=== PATIENT | male | born 1950 | race Caucasian/White ===

== ENCOUNTER → 2016-08-10 | Outpatient (CLI) | payer MEDICARE, OTHER ==
--- NOTE | 2016-08-10 21:50 | EEG ---
DATE OF SERVICE: 08/10/2016 INDICATIONS FOR EXAMINATION: This patient is a 66-year-old male with history of seizures dating back to 2003. The patient now with increasing confusion and memory loss. AGE: 66Y EEG FINDINGS: A routine 21-channel, awake digital EEG recording was accomplished utilizing the 10-20 international system with bipolar and referential montages. The background activity in the most alert resting state consists of a low to medium amplitude, fairly well-developed and well-sustained 7-8 Hz activity over the posterior head regions. This posterior rhythm attenuates to eye opening. There is a small amount of low amplitude 18-20 Hz beta activity seen maximally over the anterior head regions. Muscle and movement artifact was observed on a few occasions during the tracing. Hyperventilation failed to add any additional information to the tracing. No further activation was noted. Photic stimulation at flash frequencies of 2-30 Hz produced a minimal occipital driving response. No epileptiform discharges were seen. IMPRESSION: This EEG is within normal limits for the patient's age. The EEG failed to reveal any focal, lateralized or epileptiform abnormalities. Clinical correlation is recommended.
== END | disposition home or self-care (01) ==
LOC: NEUROMAIN 09:06
PROVIDERS: ATTEND Psychiatry & Neurology Neurology
DX: R56.9 Unspecified convulsions (principal); R41.3 Other amnesia
CPT/HCPCS: 95816

== ENCOUNTER 2016-12-15 13:59 | Inpatient (IN) | payer MEDICARE, OTHER ==
[2016-12-15] MEDS ORDERED: SODIUM CHLORIDE 0.9% 1,000 ML IV STA (14:51)
--- NOTE | 2016-12-15 14:59 | ED ---
General Adult HPI - General Chief complaint: Recheck/Abnormal Lab/Rx Stated complaint: Dr Sent/ Swollen leg Time Seen by Provider: 12/15/16 14:40 Source: patient, family, RN notes reviewed Mode of arrival: ambulatory Limitations: altered mental status - History of Present Illness Initial comments: Chief complaint and history of present illness is a 66-year-old male who is here with his sister. The patient has special needs and lives in a facility where he is cared for. The patient was seen by the family physician today because of increased peripheral edema even to his left arm. Some shortness of breath. What appears to be some bloating of his abdomen. No disability 10 pound weight gain recently. The patient does not have any complaints of pain other than chronic low back pain. - Related Data Home Medications Medication Instructions Recorded Confirmed Divalproex Sodium [Depakote] 1,000 mg PO BID 12/15/16 12/15/16 Divalproex Sodium [Depakote] 500 mg PO W/LUNCH 12/15/16 12/15/16 Lisinopril [Zestril] 1 tab PO DAILY 12/15/16 12/15/16 Allergies Allergy/AdvReac Type Severity Reaction Status Date / Time No Known Allergies Allergy Verified 12/15/16 14:40 Review of Systems ROS Statement: Those systems with pertinent positive or pertinent negative responses have been documented in the HPI. Review of systems. He is denying any visual acuity changes no headache no chest pain occasional shortness of breath with exertion. Though his abdomen looks distended sister says it looks somewhat normal. He does have pitting edema bilateral extremities from his knees to his feet. No significant change in his alertness or cognitive abilities. As noted above he does has special needs and is cared for in a facility. No falls or injuries. All systems are reviewed. Past medical processing significant for seizure disorder for which he takes Depakote. Also hypertension which he takes lisinopril. Patient surgeries on the nasal polyps. He had an adverse reaction to the anesthetic used at that time. Family history mother had colon cancer a brother had lung cancer father had diabetes. ALLERGIES as noted above to an anesthetic of unknown type. Nonsmoker nondrinker. ROS Other: All systems not noted in ROS Statement are negative. Past Medical History Past Medical History: Seizure Disorder Additional Past Medical History / Comment(s): special needs History of Any Multi-Drug Resistant Organisms: None Reported Additional Past Surgical History / Comment(s): nasal polps Past Psychological History: No Psychological Hx Reported Smoking Status: Never smoker Past Alcohol Use History: None Reported Past Drug Use History: None Reported General Exam - General Exam Comments Initial Comments: General: The patient is awake and alert, in no distress, and does not appear acutely ill. Here with her sister because of a 10 pound weight gain recently. Some dyspnea with exertion. And peripheral edema to his extremities including left arm but not the right arm. Vital signs show temperature 96.9 pulse 75 respiratory rate 20 pulse ox 95% room air blood pressure 163/95 Eye: Pupils are equal, round and reactive to light, extra-ocular movements are intact ; there is normal conjunctiva bilaterally. No signs of icterus. Ears, nose, mouth and throat: There are moist mucous membranes and no oral lesions. Neck: The neck is supple, there is no tenderness , no anterior cervical lymphadenopathy. Cardiovascular: There is a regular rate and rhythm. No murmur, rub or gallop is appreciated. Respiratory: Lungs are clear to auscultation, respirations are non-labored, breath sounds are equal. No wheezes, stridor, rales, or rhonchi. Dyspnea develops with mild activity. Gastrointestinal: Soft, appears distended but not typically more than normal per sister, non- tender abdomen without masses or organomegaly noted. There is no rebound or guarding present. No CVA tenderness. Bowel sounds are unremarkable. Back: There is no tenderness to palpation in the midline. There is no obvious deformity. No rashes noted. Low back pain, chronic has history of osteoporosis and takes calcium twice daily. Musculoskeletal: Pitting edema both lower extremities. Mildly more edematous left arm than right. Pulses to lower extremities equal bilaterally. Neurological: CN II-XII intact, There are no obvious motor or sensory deficits. Coordination appears grossly intact. Speech is normal. Sister does not notice any neurological changes or differences. Skin: Skin is warm and dry and no rashes or lesions are noted. Psychiatric: Cooperative, history of special needs but no psychological illnesses. Limitations: altered mental status Course Vital Signs 12/15/16 12/15/16 12/15/16 14:04 17:19 18:40 Temperature 96.9 F L Pulse Rate 75 74 73 Respiratory 20 18 18 Rate Blood Pressure 163/95 168/88 194/97 O2 Sat by Pulse 95 96 97 Oximetry EKG Findings - EKG Comments: EKG Findings:: EKG was done and reviewed at 1546 showing normal sinus rhythm no acute ST elevation no ectopy no ischemic changes. Rate 72. It was 162 QRS 82 QT 386 QTc 422. Medical Decision Making - Medical Decision Making Medical decision making; patient's labs show white count of 4 hemoglobin 13 hematocrit 38. Platelets 90. D-dimer 0.26. Patient's CK is 66 troponin less than 0.012. Glucose 142. Patient's INR is 1.2, potassium 4.3 BUN 16 creatinine 0.9 and GFR greater than 60. Urine clean no signs of infection or blood. Medical decision making the patient had chest x-ray done and reviewed by radiologist his impression is there is no suspicious no focal airspace opacity, pleural effusion, or pneumothorax seen. There is persistent left basilar scarring and/or atelectasis. Cardiac silhouette size is stable and upper limits of normal. The osseous structures are somewhat demineralized. Impression no worrisome acute cardiopulmonary process. As read by Dr. daneil x- ray of the abdomen was done and reviewed by radiologist his impression is scattered gas is seen in nondistended small bowel loops. Gas and fecal material is seen in nondistended colon. There is no visceromegaly, pneumoperitoneum, or abnormal calcification associated. The lung bases are clear and the osseous structures are intact. Impression overall nonobstructive bowel gas pattern as read by Dr. daniel. CT the abdomen was done with IV and oral contrast and reviewed by radiologist significant findings are contracted gallbladder is noted likely related to recent drinking contrast material. Tiny depending gallstones present on coronal image 44 confirmed the axial image 28. No surrounding inflammatory changes seen liver is somewhat small in size. Pancreas Dony adrenals and kidneys no significant abnormality seen. The bowel; a normal-appearing appendix is seen from the cecum. Oral contrast reaches level of the cecum. There is contrast filled distended stomach. There is no suspicious small or large bowel dilatation. There is somewhat redundant sigmoid colon. Prostate and seminal vesicles no gross abnormality seen. Lymph nodes no greater than 1 cm abdominal or pelvic lymph nodes are appreciated. Osseous structures prominent small nodes. T11 endplate. Impression no significant acute finding is seen Over the patient's clinical symptoms. No ascites is present. As read by Dr. daniel Be blood pressure at this time is to a 208 / 112. The patient received hydralazine 20 mg IV push. Patient will be admitted for observation. - Lab Data Result diagrams: 12/15/16 15:30 12/15/16 15:30 Lab Results 12/15/16 12/15/16 12/15/16 Range/Units 15:30 15:30 15:30 WBC 4.1 (3.8-10.6) k/uL RBC 4.02 L (4.30-5.90) m/uL Hgb 13.4 (13.0-17.5) gm/dL Hct 38.2 L (39.0-53.0) % MCV 95.0 (80.0-100.0) fL MCH 33.3 (25.0-35.0) pg MCHC 35.1 (31.0-37.0) g/dL RDW 13.9 (11.5-15.5) % Plt Count 90 L (150-450) k/uL Neutrophils % 56 % Lymphocytes % 28 % Monocytes % 9 % Eosinophils % 3 % Basophils % 0 % Neutrophils # 2.3 (1.3-7.7) k/uL Lymphocytes # 1.2 (1.0-4.8) k/uL Monocytes # 0.4 (0-1.0) k/uL Eosinophils # 0.1 (0-0.7) k/uL Basophils # 0.0 (0-0.2) k/uL PT (9.0-12.0) sec INR (<1.1) APTT (22.0-30.0) sec D-Dimer (<0.60) mg/L FEU Sodium 141 (137-145) mmol/L Potassium 4.3 (3.5-5.1) mmol/L Chloride 105 (98-107) mmol/L Carbon Dioxide 28 (22-30) mmol/L Anion Gap 8 mmol/L BUN 16 (9-20) mg/dL Creatinine 0.90 (0.66-1.25) mg/dL Est GFR (MDRD) Af Amer >60 (>60 ml/min/1.73 sqM) Est GFR (MDRD) Non-Af >60 (>60 ml/min/1.73 sqM) Glucose 142 H (74-99) mg/dL Calcium 8.6 (8.4-10.2) mg/dL Total Bilirubin 0.4 (0.2-1.3) mg/dL AST 85 H (17-59) U/L ALT 55 (21-72) U/L Alkaline Phosphatase 46 (38-126) U/L Total Creatine Kinase 66 (55-170) U/L CK-MB (CK-2) 0.9 (0.0-2.4) ng/mL CK-MB (CK-2) Rel Index 1.4 Troponin I <0.012 (0.000-0.034) ng/mL NT-Pro-B Natriuret Pep pg/mL Total Protein 6.5 (6.3-8.2) g/dL Albumin 3.5 (3.5-5.0) g/dL TSH (0.465-4.680) mIU/L Free T4 (0.78-2.19) ng/dL Urine Color Urine Appearance (Clear) Urine pH (5.0-8.0) Ur Specific Whitfield (1.001-1.035) Urine Protein (Negative) Urine Glucose (UA) (Negative) Urine Ketones (Negative) Urine Blood (Negative) Urine Nitrite (Negative) Urine Bilirubin (Negative) Urine Urobilinogen (<2.0) mg/dL Ur Leukocyte Esterase (Negative) Valproic Acid ug/mL 12/15/16 12/15/16 12/15/16 Range/Units 15:30 15:30 15:30 WBC (3.8-10.6) k/uL RBC (4.30-5.90) m/uL Hgb (13.0-17.5) gm/dL Hct (39.0-53.0) % MCV (80.0-100.0) fL MCH (25.0-35.0) pg MCHC (31.0-37.0) g/dL RDW (11.5-15.5) % Plt Count (150-450) k/uL Neutrophils % % Lymphocytes % % Monocytes % % Eosinophils % % Basophils % % Neutrophils # (1.3-7.7) k/uL Lymphocytes # (1.0-4.8) k/uL Monocytes # (0-1.0) k/uL Eosinophils # (0-0.7) k/uL Basophils # (0-0.2) k/uL PT 11.8 (9.0-12.0) sec INR 1.2 (<1.1) APTT 24.4 (22.0-30.0) sec D-Dimer 0.26 (<0.60) mg/L FEU Sodium (137-145) mmol/L Potassium (3.5-5.1) mmol/L Chloride (98-107) mmol/L Carbon Dioxide (22-30) mmol/L Anion Gap mmol/L BUN (9-20) mg/dL Creatinine (0.66-1.25) mg/dL Est GFR (MDRD) Af Amer (>60 ml/min/1.73 sqM) Est GFR (MDRD) Non-Af (>60 ml/min/1.73 sqM) Glucose (74-99) mg/dL Calcium (8.4-10.2) mg/dL Total Bilirubin (0.2-1.3) mg/dL AST (17-59) U/L ALT (21-72) U/L Alkaline Phosphatase (38-126) U/L Total Creatine Kinase (55-170) U/L CK-MB (CK-2) (0.0-2.4) ng/mL CK-MB (CK-2) Rel Index Troponin I (0.000-0.034) ng/mL NT-Pro-B Natriuret Pep 490 pg/mL Total Protein (6.3-8.2) g/dL Albumin (3.5-5.0) g/dL TSH (0.465-4.680) mIU/L Free T4 (0.78-2.19) ng/dL Urine Color Yellow Urine Appearance Clear (Clear) Urine pH 7.0 (5.0-8.0) Ur Specific Whitfield 1.016 (1.001-1.035) Urine Protein Negative (Negative) Urine Glucose (UA) Trace H (Negative) Urine Ketones Trace H (Negative) Urine Blood Negative (Negative) Urine Nitrite Negative (Negative) Urine Bilirubin Negative (Negative) Urine Urobilinogen <2.0 (<2.0) mg/dL Ur Leukocyte Esterase Negative (Negative) Valproic Acid ug/mL 12/15/16 12/15/16 Range/Units 15:30 15:30 WBC (3.8-10.6) k/uL RBC (4.30-5.90) m/uL Hgb (13.0-17.5) gm/dL Hct (39.0-53.0) % MCV (80.0-100.0) fL MCH (25.0-35.0) pg MCHC (31.0-37.0) g/dL RDW (11.5-15.5) % Plt Count (150-450) k/uL Neutrophils % % Lymphocytes % % Monocytes % % Eosinophils % % Basophils % % Neutrophils # (1.3-7.7) k/uL Lymphocytes # (1.0-4.8) k/uL Monocytes # (0-1.0) k/uL Eosinophils # (0-0.7) k/uL Basophils # (0-0.2) k/uL PT (9.0-12.0) sec INR (<1.1) APTT (22.0-30.0) sec D-Dimer (<0.60) mg/L FEU Sodium (137-145) mmol/L Potassium (3.5-5.1) mmol/L Chloride (98-107) mmol/L Carbon Dioxide (22-30) mmol/L Anion Gap mmol/L BUN (9-20) mg/dL Creatinine (0.66-1.25) mg/dL Est GFR (MDRD) Af Amer (>60 ml/min/1.73 sqM) Est GFR (MDRD) Non-Af (>60 ml/min/1.73 sqM) Glucose (74-99) mg/dL Calcium (8.4-10.2) mg/dL Total Bilirubin (0.2-1.3) mg/dL AST (17-59) U/L ALT (21-72) U/L Alkaline Phosphatase (38-126) U/L Total Creatine Kinase (55-170) U/L CK-MB (CK-2) (0.0-2.4) ng/mL CK-MB (CK-2) Rel Index Troponin I (0.000-0.034) ng/mL NT-Pro-B Natriuret Pep pg/mL Total Protein (6.3-8.2) g/dL Albumin (3.5-5.0) g/dL TSH 6.020 H (0.465-4.680) mIU/L Free T4 0.80 (0.78-2.19) ng/dL Urine Color Urine Appearance (Clear) Urine pH (5.0-8.0) Ur Specific Whitfield (1.001-1.035) Urine Protein (Negative) Urine Glucose (UA) (Negative) Urine Ketones (Negative) Urine Blood (Negative) Urine Nitrite (Negative) Urine Bilirubin (Negative) Urine Urobilinogen (<2.0) mg/dL Ur Leukocyte Esterase (Negative) Valproic Acid 117.7 H* ug/mL Disposition Clinical Impression: Edema extremities, Accelerated hypertension Disposition: ADMITTED IP TO THIS HOSP Condition: Serious Referrals: Celestino Dia DO [Primary Care Provider] - 1-2 days
--- NOTE | 2016-12-15 16:14 | XR ---
EXAMINATION TYPE: XR chest 2V DATE OF EXAM: 12/15/2016 COMPARISON: Chest x-ray October 26, 2012. HISTORY: Difficulty breathing with swelling in both legs. TECHNIQUE: Frontal and lateral views of the chest are obtained. FINDINGS: There is no suspicious new focal air space opacity, pleural effusion, or pneumothorax seen . There is persistent left basilar scarring and/or atelectasis. The cardiac silhouette size is stabl e and upper limits of normal. The osseous structures are somewhat demineralized. IMPRESSION: No worrisome acute cardiopulmonary process.
--- NOTE | 2016-12-15 16:15 | XR ---
EXAMINATION TYPE: XR abdomen 2V DATE OF EXAM: 12/15/2016 CLINICAL HISTORY: Difficulty breathing with swelling in both legs. TECHNIQUE: Supine and upright views of the abdomen are obtained. COMPARISON: None. FINDINGS: Scattered gas is seen in non-distended small bowel loops. Gas and fecal material is seen in non-distended colon. There is no visceromegaly, pneumoperitoneum, or abnormal calcification appr eciated. The lung bases are clear and the osseous structures are intact. IMPRESSION: Overall nonobstructive bowel gas pattern.
[2016-12-15 16:16] LABS: Appearance,Urine Clear (Clear); Basophils % (A) 0 %; Bilirubin,Urine Negative (Negative); CH 32.4; CHCM 34.3; Eosinophils # (A) 0.1 k/uL (0-0.7); Eosinophils % (A) 3 %; Glucose,Urine (UA) Trace (Negative); HCT 38.2 % (39.0-53.0); HDW 2.69; HGB 13.4 gm/dL (13.0-17.5); Ketones,Urine Trace (Negative); Leukocyte Esterase,Urine Negative (Negative); Luc # (Auto) 0.12; Luc % (Auto) 3; Lymphocytes # (A) 1.2 k/uL (1.0-4.8); Lymphocytes % (A) 28 %; MCH 33.3 pg (25.0-35.0); MCHC 35.1 g/dL (31.0-37.0); Monocytes # (A) 0.4 k/uL (0-1.0); Monocytes % (A) 9 %; Neutrophils # (A) 2.3 k/uL (1.3-7.7); Neutrophils % (A) 56 %; Nitrite,Urine Negative (Negative); Protein,Urine Negative (Negative); RBC 4.02 m/uL (4.30-5.90); RDW 13.9 % (11.5-15.5); Specific Gravity,Urine 1.016 (1.001-1.035); UA Billing (MACRO vs. MICRO) CHEM; Urobilinogen,Urine <2.0 mg/dL (<2.0); WBC 4.1 k/uL (3.8-10.6); WBC (Perox) 4.34
[2016-12-15 16:34] LABS: INR 1.2 (<1.1); Partial Thromboplastin Time 24.4 sec (22.0-30.0); Prothrombin Time 11.8 sec (9.0-12.0)
[2016-12-15 16:35] LABS: Creatine Kinase 66 U/L (55-170)
[2016-12-15 16:39] LABS: ALT 55 U/L (21-72); AST 85 U/L (17-59); Alkaline Phosphatase 46 U/L (38-126); Anion Gap 8 mmol/L; Blood Urea Nitrogen 16 mg/dL (9-20); Calcium 8.6 mg/dL (8.4-10.2); Carbon Dioxide 28 mmol/L (22-30); Chloride 105 mmol/L (98-107); Glucose 142 mg/dL (74-99); Non-African American GFR(MDRD) >60 (>60 ml/min/1.73 sqM); Potassium 4.3 mmol/L (3.5-5.1); Sodium 141 mmol/L (137-145); Total Bilirubin 0.4 mg/dL (0.2-1.3); Total Protein 6.5 g/dL (6.3-8.2)
[2016-12-15 16:47] LABS: Creatine Kinase MB 0.9 ng/mL (0.0-2.4); Troponin I <0.012 ng/mL (0.000-0.034)
[2016-12-15] MEDS ORDERED: RX INFO: IV CONTRAST WAS GIVEN 1 EACH MISC MISCELLANE PRN (16:59)
[2016-12-15] MEDS ORDERED: IOHEXOL 350 MG/ML 25 ML BOTTLE (ORAL USE) PO PRN (16:59)
[2016-12-15] MEDS ORDERED: cloNIDine HCL 0.2 MG TAB PO STA (18:39)
--- NOTE | 2016-12-15 19:29 | CT ---
EXAMINATION TYPE: CT abdomen pelvis w con DATE OF EXAM: 12/15/2016 COMPARISON: NONE HISTORY: Abdominal bloating and weight gain. CT DLP: 1229.7 mGycm, Automated Exposure Control for Dose Reduction was Utilized. CONTRAST: CT scan of the abdomen and pelvis is performed with oral and with IV Contrast, patient injected with 100 mL of Omnipaque 300. FINDINGS: LUNG BASES: Dependent atelectasis left lung base is present. LIVER/GB: Contracted gallbladder is noted likely related to recent drinking contrast material. Tiny d ependent gallstone is present on coronal image 44 confirmed axial image 28. No surrounding inflammato ry change is seen. Liver is somewhat small in size. PANCREAS: No significant abnormality is seen. SPLEEN: No significant abnormality is seen. ADRENALS: No significant abnormality is seen. KIDNEYS: No significant abnormality is seen. BOWEL: Normal-appearing appendix is seen from cecum. Oral contrast reaches level of cecum. There is c ontrast-filled distended stomach. There is no suspicious small or large bowel dilatation. There is so mewhat redundant sigmoid colon. PROSTATE/SEMINAL VESICLES: No gross abnormality seen. LYMPH NODES: No greater than 1cm abdominal or pelvic lymph nodes are appreciated. OSSEOUS STRUCTURES: Prominent Schmorl node superior T11 endplate. OTHER: No significant additional abnormality is seen. IMPRESSION: No significant acute finding is seen to account for patient's clinical symptoms. No asci mayte is present.
[2016-12-15] MEDS ORDERED: FUROSEMIDE 20 MG TAB PO STA (20:02)
[2016-12-15] MEDS ORDERED: hydrALAZINE HCL 20 MG/ML 1 ML VIAL IVP STA (20:03)
[2016-12-15] MEDS ORDERED: NALOXONE 0.4 MG/ML 1 ML VIAL IV PRN (20:07)
[2016-12-15] MEDS: SODIUM CHLORIDE 0.9% 1,000 ML IV SCH (20:38)
[2016-12-15] MEDS ORDERED: ENALAPRILAT 1.25 MG/ML 1 ML VIAL IVP PRN (20:45)
[2016-12-15] MEDS ORDERED: DIVALPROEX 500 MG TABLET.DR PO SCH (21:00)
[2016-12-15 21:37] VITALS: BMI 27.4
[2016-12-15] MEDS ORDERED: SODIUM CHLORIDE 0.9% 250 ML IV ONE (23:48)
[2016-12-16] MEDS ORDERED: FUROSEMIDE 10 MG/ML 2 ML VIAL IV SCH
[2016-12-16] MEDS: FUROSEMIDE 10 MG/ML 2 ML VIAL IV SCH ×2 (08:31→20:29)
[2016-12-16] MEDS ORDERED: LISINOPRIL 10 MG TAB PO SCH (09:00)
[2016-12-16] MEDS ORDERED: DIVALPROEX 500 MG TABLET.DR PO SCH (12:30)
--- NOTE | 2016-12-16 12:47 | HP ---
DATE OF ADMISSION: DATE OF SERVICE: 12/15/2016 CHIEF COMPLAINT: Swollen legs and generalized swelling. HISTORY OF PRESENT ILLNESS: This 66-year-old gentleman with past medical history of seizure disorder, history of special-needs, history of previous problems with anesthesia and being followed by Dr. Dia in the outpatient setting noted to have swelling in the lower limbs by sister. The patient lives in foster care facility. The patient also had edema, which is also increasing in both legs and both arms and some shortness of breath and facial puffiness also noted. The patient was taken to [facility] and was admitted for further evaluation and treatment. The patient cannot give a coherent history and most of the history is taken from my discussion with staff, discussion with ER physician and review of the chart. The blood pressure was found to be elevated up to 208/112 and 196/139 with hypertensive urgency. Multiple medications given. Blood pressure is coming down. Otherwise, the patient is being closely monitored. There is no history of fever, rigors. No history of headache, loss of consciousness, or seizures. PAST MEDICAL HISTORY: History of seizure disorder, history of special needs. MEDICATIONS: 1. Zestril 1 p.o. daily. 2. Depakote 1000 mg p.o. b.i.d. and 500 mg with lunch. ALLERGIES: BEE VENOM. FAMILY HISTORY: From the chart, colon cancer. SOCIAL HISTORY: No history of smoking and no history of alcohol. Review of systems could not be taken. PHYSICAL EXAMINATION: Patient is conscious. Pulse 72, blood pressure 116/60, respirations 18, temperature 97.9, pulse ox 90% on room air. HEENT: Conjunctivae normal. Oral mucosa moist. Facial puffiness present. NECK: No jugular venous distention. No carotid bruit. No lymph node enlargement. CARDIOVASCULAR: S1 and S2, muffled. No S3, no S4. RESPIRATORY: Breath sounds diminished at the bases. No rhonchi, no crackles. ABDOMEN: Soft, obese, nontender. LEGS: No edema, no swelling. NERVOUS SYSTEM: Moves all four limbs. No focal motor deficits. LYMPHATIC: No lymphadenopathy in the neck, axillae or groin. SKIN: No ulcer, rash or bleeding. Labs at this time shows WBC 4.3, hemoglobin 13.1 and glucose 142, AST is 85. TSH 6.02, FT4 0.80. Valproic acid is 117.7. ASSESSMENT: 1. Generalized edema and anasarca for evaluation. 2. Hypertensive urgency and accelerated hypertension, present on admission. 3. Thrombocytopenia. 4. Possibly Depakote toxicity. 5. History of seizure disorder. 6. History of nasal polyps. 7. Increased random blood sugar. 8. Increased AST. 9. Increased TSH and normal FT4, possibly sick euthyroid syndrome. 10. FULL CODE. RECOMMENDATIONS AND DISCUSSION: In this 66-year-old gentleman who presented with multiple complex medical issues, the exact etiology of anasarca is not known at this time. Chest x-ray showed no acute cardiopulmonary process. The abdomen x-ray was done because of some diffuse distention but nonobstructive bowel pattern was given. Abdominal pelvis CT scan was also done to rule out the possibility of hepatic/renal process and shows no significant acute findings. UA shows no protein as well. We will continue to monitor. The blood pressure is fluctuating at this time. Otherwise, I recommend a 2-D echo with Doppler and continue to monitor. Empiric Lasix can be given carefully. Monitor fluid and electrolyte balance closely. Prognosis guarded because of multiple complex medical issues. Further recommendations to follow. I discussed with staff. See orders for details. Troponins are negative . 2-D echocardiogram will be ordered. [facility]
--- NOTE | 2016-12-16 15:12 | P.CNNES ---
History of Present Illness Consult date: 12/16/16 Requesting physician: Matthew Mckeon Reason for Consult: Seizure Chief complaint: Seizure disorder History of Present Illness: Neurology is being requested to consult on a 66-year-old male with a past history of seizure disorder, history of special needs and history of previous problems with anesthesia. She was being followed by primary care provider for lower limb edema. Patient lives in a foster care facility. Edema is increasing in both lower extremities and both upper extremities. Patient began also experiencing shortness of breath and facial swelling was also noted. On contact, the patient was alert and oriented 3, in no acute distress. Patient is developmentally challenged but is able to answer basic questions and communicate regarding most of his medical complaints. He was able to state that his "seizure-like" activity increased once his primary care provider began changing his dose of Lasix. Patient denies any recent breakthrough seizure. It was noted the patient's Depakote level was at 117. Referring provider had questions related to possible depakote toxicity in the patient. Review of Systems Systems not noted previously are negative Past Medical History Past Medical History: Seizure Disorder Additional Past Medical History / Comment(s): special needs History of Any Multi-Drug Resistant Organisms: None Reported Additional Past Surgical History / Comment(s): nasal polyps removed Past Anesthesia/Blood Transfusion Reactions: Previous Problems w/ Anesthesia Past Psychological History: No Psychological Hx Reported Smoking Status: Never smoker Past Alcohol Use History: None Reported Past Drug Use History: None Reported - Past Family History Mother Family Medical History: Cancer Additional Family Medical History / Comment(s): colon cancer Brother(s) Family Medical History: Cancer Additional Family Medical History / Comment(s): lung cancer Father Family Medical History: CVA/TIA Medications and Allergies Home Medications Medication Instructions Recorded Confirmed Type Divalproex Sodium [Depakote] 1,000 mg PO BID 12/15/16 12/15/16 History Divalproex Sodium [Depakote] 500 mg PO W/LUNCH 12/15/16 12/15/16 History Lisinopril [Zestril] 1 tab PO DAILY 12/15/16 12/15/16 History Allergies Allergy/AdvReac Type Severity Reaction Status Date / Time bee venom protein (honey bee) Allergy Anaphylaxis Verified 12/15/16 21:20 Physical Examination - Vital Signs Vital Signs: Vital Signs Temp Pulse Pulse Resp BP BP BP 12/16/16 12:00 63 18 126/69 12/16/16 10:27 12/16/16 08:00 72 18 118/78 12/16/16 04:00 98.4 F 60 18 94/57 12/16/16 00:30 97.5 F L 68 18 91/53 12/15/16 23:48 82/50 12/15/16 21:27 97.9 F 94 18 116/66 12/15/16 21:00 97.9 F 94 18 116/66 12/15/16 20:35 72 18 196/139 12/15/16 20:04 99.1 F 84 18 208/112 12/15/16 18:40 73 18 194/97 12/15/16 17:19 74 18 168/88 Pulse Ox 12/16/16 12:00 94 L 12/16/16 10:27 94 L 12/16/16 08:00 96 12/16/16 04:00 96 12/16/16 00:30 95 12/15/16 23:48 12/15/16 21:27 98 12/15/16 21:00 98 12/15/16 20:35 96 12/15/16 20:04 96 12/15/16 18:40 97 12/15/16 17:19 96 Intake and Output 12/15/16 12/16/16 12/16/16 22:59 06:59 14:59 Intake Total 600 Output Total 350 800 Balance -350 -200 Intake: Oral 600 Output: Urine 350 800 Other: Voiding Method Urinal # Voids 1 Weight 86.9 kg Constitutional: AOx3, cooperative HEENT: NC/AT, no facial asymmetry is seen. Throat: Supple, no masses Respiratory: No increased work of breathing Cardiac: Regular rate and Rhythm GI: non tender, non distended Musculoskeletal: Breakfast Hostess strengths are equal bilaterally 4/5, Lower extremity strengths are equal bilaterally at 4/5. Neurological: CN II-XII in tact, patient was AOx3, speech and language are normal, no unilateralizing weakness, no seizure activity note on physical exam. Sensation was normal. Integementary: no rash, no erythema. Lower extremity edema noted. Psychiatric: mood and affect appropriate Results - Laboratory Findings CBC and BMP: 12/15/16 15:30 12/15/16 15:30 Abnormal Lab Findings: Abnormal Labs 12/15/16 12/15/16 12/15/16 15:30 15:30 15:30 RBC 4.02 L Hct 38.2 L Plt Count 90 L Glucose 142 H AST 85 H TSH Urine Glucose (UA) Trace H Urine Ketones Trace H Valproic Acid 12/15/16 12/15/16 15:30 15:30 RBC Hct Plt Count Glucose AST TSH 6.020 H Urine Glucose (UA) Urine Ketones Valproic Acid 117.7 H* Assessment and Plan Plan: 1. Seizure disorderrule out Depakote toxicity 2. Edemageneralized Patient does have a seizure history and is actively utilizing Depakote for seizure control. Patient's blood level is 117 and within the therapeutic window. Toxicity occurs of 124. Although Depakote can cause some lower extremity edema, due to the patient's generalized pattern with his edema, it does not appear to be related to Depakote at this time. Patient has not had any seizure activity while inpatient and the patient denied any breakthrough seizure activity in the past several days. Nursing staff also reports the patient has not had any breakthrough seizure. Ordered: Depakote levelredraw 30 [place] [id number]. Notify neurology with any neurological status changes Notify neurology for any new seizure-like activity. Continue seizure precautions Neuro checks every shift Neurology will continue to follow him provide any further updates as needed or warranted. Please feel free to contact our office with any further questions. I discussed the patient's pertinent medical information with Dr. Tadeo. He agrees with the plan of care as implemented.
[2016-12-16] MEDS: SODIUM CHLORIDE 0.9% 1,000 ML IV SCH (16:38)
[2016-12-17 01:23] VITALS: TEMP 98.2
[2016-12-17 07:01] LABS: Anion Gap 9 mmol/L; Blood Urea Nitrogen 22 mg/dL (9-20); Calcium 8.6 mg/dL (8.4-10.2); Carbon Dioxide 25 mmol/L (22-30); Chloride 107 mmol/L (98-107); Glucose 84 mg/dL (74-99); Non-African American GFR(MDRD) >60 (>60 ml/min/1.73 sqM); Potassium 4.5 mmol/L (3.5-5.1); Sodium 141 mmol/L (137-145)
[2016-12-17 07:03] LABS: Basophils % (A) 0 %; CH 32.9; CHCM 34.5; Eosinophils # (A) 0.1 k/uL (0-0.7); Eosinophils % (A) 2 %; HCT 38.6 % (39.0-53.0); HDW 2.59; HGB 13.1 gm/dL (13.0-17.5); Luc # (Auto) 0.18; Luc % (Auto) 4; Lymphocytes # (A) 1.4 k/uL (1.0-4.8); Lymphocytes % (A) 27 %; MCH 32.5 pg (25.0-35.0); MCV 95.9 fL (80.0-100.0); Mean Platelet Volume 7.7; Monocytes # (A) 0.7 k/uL (0-1.0); Monocytes % (A) 13 %; Neutrophils # (A) 2.8 k/uL (1.3-7.7); Neutrophils % (A) 54 %; RBC 4.02 m/uL (4.30-5.90); RDW 13.9 % (11.5-15.5); WBC 5.1 k/uL (3.8-10.6); WBC (Perox) 5.42
--- NOTE | 2016-12-17 08:14 | P.CRDCN ---
History of Present Illness Consult date: 12/17/16 Requesting physician: Matthew Mckeon Consult reason: hypertension Chief complaint: Leg and abdominal swelling History of present illness: This is a 66-year-old gentleman with history of special-needs, some of the history was obtained from the patient but most of the history was obtained from the medical record. Patient apparently has past medical history of seizures, hypertension, he was apparently seen at his primary care physician' s office and was noted to have significant swelling in his bilateral extremities as well as swelling in his abdomen. For this reason he was admitted to the hospital for further evaluation. Blood pressure on arrival here 164/90, blood pressure did go up to 208/112 he also had a low-grade temperature of 99.1, blood pressure this morning 136/80 with a heart rate in the 70s. 94% on room air. EKG on arrival here showed a normal sinus rhythm with no acute changes. Abdominal x-ray revealed nonobstructive bowel gas pattern. CT of the abdomen and pelvis did not reveal any significant acute findings. No ascites. White blood cell count 5.1, hemoglobin 13.1, platelet count 82. D-dimer 0.26, potassium 4.5, BUN 22, creatinine 0.9. Troponins have been negative 3. TSH 6.0-0 free T4 0.8. BNP level 490 which is within normal range for the patient's age. Chest x-ray did not reveal any acute findings. Patient was initiated on IV Lasix in the emergency room, his weight is down 1 kg today. Patient was also initiated on when necessary Vasotec for elevated blood pressure. He is currently receiving IV fluids at 50 mL per hour. Past Medical History Past Medical History: Seizure Disorder Additional Past Medical History / Comment(s): special needs History of Any Multi-Drug Resistant Organisms: None Reported Additional Past Surgical History / Comment(s): nasal polyps removed Past Anesthesia/Blood Transfusion Reactions: Previous Problems w/ Anesthesia Past Psychological History: No Psychological Hx Reported Smoking Status: Never smoker Past Alcohol Use History: None Reported Past Drug Use History: None Reported - Past Family History Mother Family Medical History: Cancer Additional Family Medical History / Comment(s): colon cancer Brother(s) Family Medical History: Cancer Additional Family Medical History / Comment(s): lung cancer Father Family Medical History: CVA/TIA Medications and Allergies Home Medications Medication Instructions Recorded Confirmed Type Divalproex Sodium [Depakote] 1,000 mg PO BID 12/15/16 12/15/16 History Divalproex Sodium [Depakote] 500 mg PO W/LUNCH 12/15/16 12/15/16 History Lisinopril [Zestril] 1 tab PO DAILY 12/15/16 12/15/16 History Allergies Allergy/AdvReac Type Severity Reaction Status Date / Time bee venom protein (honey bee) Allergy Anaphylaxis Verified 12/15/16 21:20 Physical Exam Vitals: Vital Signs Temp Pulse Resp BP Pulse Ox 12/17/16 04:00 72 16 137/81 94 L 12/17/16 00:00 98.2 F 69 16 159/98 97 12/16/16 20:00 98.7 F 70 17 127/80 97 12/16/16 15:41 67 18 121/76 95 12/16/16 12:00 63 18 126/69 94 L 12/16/16 10:27 94 L Intake and Output 12/16/16 12/17/16 12/17/16 22:59 06:59 14:59 Intake Total 240 300 Output Total 800 Balance -560 300 Intake: IV 300 Sodium Chloride 0.9% 1, 300 000 ml @ 50 mls/hr IV . Q20H [facility] Rx#:[id number] Oral 240 Output: Urine 800 Other: Voiding Method Urinal Urinal Weight 85.6 kg PHYSICAL EXAMINATION: HEENT: Head is atraumatic, normocephalic. Pupils equal, round. Neck is supple. There is no elevated jugular venous pressure. HEART EXAMINATION: Heart S1 and S2 systolic murmur is heard. CHEST EXAMINATION: Lungs are clear to auscultation and precussion. No chest wall tenderness is noted on palpation or with deep breathing. ABDOMEN: Firm, distended , nontender. Bowel sounds are heard. No organomegaly noted. EXTREMITIES: 2+ peripheral pulses with no evidence of peripheral edema and no calf tenderness noted. NEUROLOGIC patient is awake, alert and oriented -2. . Results 12/17/16 05:52 12/17/16 05:52 CBC 12/17/16 Range/Units 05:52 WBC 5.1 (3.8-10.6) k/uL RBC 4.02 L (4.30-5.90) m/uL Hgb 13.1 (13.0-17.5) gm/dL Hct 38.6 L (39.0-53.0) % Plt Count 82 L (150-450) k/uL Comprehensive Metabolic Panel 12/17/16 Range/Units 05:52 Sodium 141 (137-145) mmol/L Potassium 4.5 (3.5-5.1) mmol/L Chloride 107 (98-107) mmol/L Carbon Dioxide 25 (22-30) mmol/L BUN 22 H (9-20) mg/dL Creatinine 0.90 (0.66-1.25) mg/dL Glucose 84 (74-99) mg/dL Calcium 8.6 (8.4-10.2) mg/dL Current Medications Generic Name Dose Route Start Last Admin Trade Name Freq PRN Reason Stop Dose Admin Divalproex Sodium 1,000 mg 12/17/16 09:00 Depakote PO BID MAO Divalproex Sodium 500 mg 12/17/16 12:00 Depakote PO 1200 [facility] Enalaprilat 1.25 mg 12/15/16 20:45 Vasotec IVP Q4HR PRN Blood Pressure - High Furosemide 20 mg 12/16/16 09:00 12/16/16 20:29 Lasix IV 20 mg Q12HR MAO Administration Sodium Chloride 1,000 mls @ 50 mls/hr 12/15/16 20:15 12/16/16 16:38 Saline 0.9% IV Not Given .Q20H [facility] Miscellaneous Information 1 each 12/15/16 16:59 Rx Info: Iv Contrast Was Given MISCELLANE 12/17/16 17:00 DAILY PRN Per Protocol Naloxone HCl 0.2 mg 12/15/16 20:07 Narcan IV Q2M PRN Opioid Reversal Intake and Output 12/16/16 12/17/16 12/17/16 22:59 06:59 14:59 Intake Total 240 300 Output Total 800 Balance -560 300 Intake: IV 300 Sodium Chloride 0.9% 1, 300 000 ml @ 50 mls/hr IV . Q20H [facility] Rx#:[id number] Oral 240 Output: Urine 800 Other: Voiding Method Urinal Urinal Weight 85.6 kg 12/17/16 05:52 12/17/16 05:52 EKG Interpretations (text) EKG shows normal sinus rhythm with no acute changes Assessment and Plan Plan: Assessment and plan #1 symptoms of bilateral leg swelling and abdominal swelling. No clear-cut evidence of congestive heart failure. BNP level normal for the patient's age, no chest x-ray findings to suggest congestive cardiac failure. #2 accelerated hypertension #3 history of hypertension #4 history of seizures #5 special needs Plan We will discontinue the when necessary Vasotec and put the patient back on by mouth Zestril. We will also obtain an echocardiogram with Doppler study. We will discontinue the IV Lasix. Further recommendations to follow. DNP note has been reviewed, I agree with a documented findings and plan of care. Patient was seen and examined.
[2016-12-17] MEDS ORDERED: LISINOPRIL 5 MG TAB PO SCH (09:00)
[2016-12-17] MEDS ORDERED: DIVALPROEX 500 MG TABLET.DR PO SCH ×2 (09:00→12:00)
[2016-12-17 09:08] VITALS: PULSE 75; RESP 18
--- NOTE | 2016-12-17 10:02 | PN ---
DATE OF SERVICE: 12/16/2016 This is a 66-year-old gentleman who was admitted with generalized anasarca, is being closely monitored at this time. The patient received Lasix and the blood pressure also was fluctuating. No chest pain, no palpitation, no fever. On exam, pulse is 63, blood pressure 126/69, respirations 18, temperature 97, pulse ox 94% on room air. HEENT: Conjunctivae normal. NECK: No jugular venous distension. CARDIOVASCULAR SYSTEM: S1, S2, muffled. RESPIRATORY: Breath sounds diminished at the bases. No rhonchi, no crackles. ABDOMEN: Soft. LEGS: Minimal edema. NERVOUS SYSTEM: No focal deficits. Minimal facial puffiness present. Labs are WBC 4.1, hemoglobin is 13.4. ASSESSMENT: 1. Generalized edema and anasarca for evaluation. 2. Hypertension urgency and accelerated hypertension fluctuating present admission, improved. 3. Thrombocytopenia. 4. Possible Depakene toxicity. 5. History of seizure disorder. 6. History of nasal polyps. 7. Increased random blood sugar. 8. Increased AST. 9. Increased TSH, normal FT4, possible sick euthyroid syndrome. 10. FULL CODE. RECOMMENDATION AND DISCUSSION: Recommend to continue with current medications, continue symptomatic treatment. I recommend a 2-D echo and as well as Cardiology consultation, also. Otherwise, I would also recommend a repeat UA also. Continue to monitor. Further recommendations to follow.
[2016-12-17] MEDS ORDERED: HYDROCHLOROTHIAZIDE 25 MG TAB PO SCH (10:15)
--- NOTE | 2016-12-17 10:31 | ECHOF ---
Referral Reason:chf MEASUREMENTS -------- HEIGHT: 180.3 cm WEIGHT: 85.3 kg BP: 137/81 IVSd: 1.4 cm (0.6 - 1.1) LVIDd: 3.2 cm (3.9 - 5.3) LVPWd: 1.6 cm (0.6 - 1.1) IVSs: 2.0 cm LVIDs: 1.8 cm LVPWs: 1.8 cm Ao Diam: 3.5 cm (2.0 - 3.7) AV Cusp: 2.2 cm (1.5 - 2.6) LA Diam: 3.1 cm (2.7 - 3.8) MV EXCURSION: 12.495 mm (> 18.000) MV EF SLOPE: 81 mm/s (70 - 150) EPSS: 0.4 cm MV E Eladio: 0.49 m/s MV DecT: 161 ms MV A Eladio: 0.54 m/s MV E/A Ratio: 0.91 RAP: 5.00 mmHg RVSP: 18.63 mmHg FINDINGS -------- Sinus rhythm. This was a technically good study. There is moderate concentric left ventricular hypertrophy. Overall left ventricular systolic function is normal with, an EF between 55 - 60 %. The right ventricle is normal in size and function. The left atrium is normal in size. The right atrium is normal in size. The aortic valve is trileaflet, and appears structurally normal. No aortic stenosis or regurgitation. There is trace mitral regurgitation. Trace tricuspid regurgitation present. The right ventricular systolic pressure, as measured by Doppler, is 18.63mmHg. Pulmonic valve appears structurally normal. The aortic root size is normal. The pericardium is normal. CONCLUSIONS -------- 1. Sinus rhythm. 2. Trace tricuspid regurgitation present. 3. The right ventricular systolic pressure, as measured by Doppler, is 18.63mmHg. 4. Pulmonic valve appears structurally normal. 5. The aortic root size is normal. 6. The pericardium is normal. 7. This was a technically good study. 8. There is moderate concentric left ventricular hypertrophy. 9. Overall left ventricular systolic function is normal with, an EF between 55 - 60 %. 10. The right ventricle is normal in size and function. 11. The left atrium is normal in size. 12. The right atrium is normal in size. 13. The aortic valve is trileaflet, and appears structurally normal. No aortic stenosis or regurgitation. 14. There is trace mitral regurgitation. TRAFFIC ANALYST: Lianet Andrews RDCS
[2016-12-17 10:55] LABS: Appearance,Urine Clear (Clear); Bilirubin,Urine Negative (Negative); Glucose,Urine (UA) Negative (Negative); Ketones,Urine Negative (Negative); Leukocyte Esterase,Urine Negative (Negative); Nitrite,Urine Negative (Negative); Protein,Urine Negative (Negative); Specific Gravity,Urine 1.007 (1.001-1.035); UA Billing (MACRO vs. MICRO) CHEM; Urobilinogen,Urine <2.0 mg/dL (<2.0)
[2016-12-17 12:27] VITALS: BP 159/91
--- NOTE | 2016-12-18 09:45 | DS ---
DATE OF ADMISSION: 12/15/2016 DATE OF DISCHARGE: 12/17/2016 FINAL DIAGNOSES: 1. Generalized edema and anasarca for evaluation, possibly Depakote-induced. 2. Normal liver functions, normal 2-D echo and as well as normal adrenal functions. 3. Hypertension, hypertensive urgency and accelerated hypertension fluctuating, present on admission, improved. 4. Thrombocytopenia. 5. High Depakote levels without any other evidence of toxicity. 6. History of seizure disorder. 7. History of nasal polyps. 8. Increased random blood sugar. 9. Increased AST. 10. Increased TSH, normal FT4 with possible sick euthyroid syndrome. 11. FULL CODE. DISCHARGE DISPOSITION: The patient will be discharged in a stable condition with guarded prognosis. HISTORY OF PRESENT ILLNESS: This is a 66-year-old gentleman with a past medical history of multiple medical problems was admitted with generalized edema and anasarca. The cardiac functions are normal, a 2-D echo was normal. The patient did not have any liver or renal disease also. Treated symptomatically, improved significantly. Cardiology saw the patient. On exam, vitals are stable. CARDIOVASCULAR SYSTEM: S1, S2 muffled. ABDOMEN: Soft. NERVOUS SYSTEM: Mild facial puffiness. Patient was treated empirically with diuretics, improved. DISCHARGE ADVICE: 1. Discharge diet is cardiac. 2. Activity limited until followup. 3. Follow up with the neurologist to adjust the Depakote dosage. The Depakote level is 117. 4. Follow with Dr. Dia in 2 to 3 days. 5. Follow up labs, CBC BMP. FOLLOWUP MEDICATIONS: 1. Depakote 500 mg with lunch and 1000 mg p.o. b.i.d. 2. HydroDIURIL 25 mg p.o. daily. 3. Lisinopril 5 mg p.o. daily. Once again, the patient will be discharged in a stable condition with guarded prognosis.
== END 2016-12-17 14:12 | disposition home or self-care (01) | DRG 948 ==
LOC: EC 13:59 → 6SEL 20:13
PROVIDERS: ADMIT Hospitalist; ATTEND Hospitalist
DX: R60.1 Generalized edema (principal); D69.6 Thrombocytopenia, unspecified; T42.6X5A Adverse effect of other antiepileptic and sedative-hypnotic drugs, initial encounter; G40.909 Epilepsy, unspecified, not intractable, without status epilepticus; I10 Essential (primary) hypertension; I16.0 Hypertensive urgency; G89.29 Other chronic pain; M54.9 Dorsalgia, unspecified; M81.0 Age-related osteoporosis without current pathological fracture; R73.9 Hyperglycemia, unspecified; Z79.899 Other long term (current) drug therapy; Y92.009 Unspecified place in unspecified non-institutional (private) residence as the place of occurrence of the external cause
CPT/HCPCS: 36415; 71020; 74020; 74177; 80048; 80053; 80164; 81003; 82550; 82553; 83880; 84439; 84443; 84484; 85025; 85379; 85610; 85730; 93005; 93306; 94760

== ENCOUNTER → 2019-02-04 | Outpatient (CLI) | payer MEDICARE, OTHER ==
--- NOTE | 2019-02-04 15:58 | CT ---
EXAMINATION TYPE: CT sinus wo con DATE OF EXAM: 02/04/2019 COMPARISON: 10/23/2018 HISTORY: Polyp of nasal sinus. CT DLP: 633 mGycm. Automated Exposure Control for Dose Reduction was Utilized. TECHNIQUE: CT scan of the sinuses is performed without contrast, axial images are obtained, coronal r eformatted images are also reviewed. FINDINGS: And there is circumferential mucosal thickening of the right maxillary sinus near completel y filling the right maxillary sinus. No chronic osseous reaction. The left maxillary sinus is well ae rated. Mild mucosal thickening is seen within the ethmoid sinuses and moderate to severe within the r ight frontal sinus with extent through the frontal recess. Sphenoid sinuses are well aerated as are t he visualized portions of the mastoid air cells. Cerumen is incidentally noted within the bilateral e xternal auditory canals. No middle ear cavity fluid is seen. The exam is not optimized for evaluation of intracranial structures however age-related atrophy is no ash. Globes are symmetric and appear intact. Lenses are in place. Extraocular muscles are unremarkabl e. The right ostiomeatal complex is occluded. There appears to be surgical augmentation of the left osti um renal complex, patent. Very mild inferior nasal turbinate mucosal hypertrophy is seen on the left. No sizable Jeffy cells or yvette bullosa. Very minimal rightward nasal septal deviation. No acute f racture is seen of the visualized facial bones. [place] artifact is generated by dental fillings. In comparison to the prior exam there is worsening of the right maxillary mucosal thickening and stephen lar degree of mucosal thickening in the remainder the previously discussed sinuses. IMPRESSION: 1. Continued worsening of the maxillary paranasal sinus disease on the right with near complete opaci fication of the right maxillary sinus. There is obscuration of the right ostiomeatal complex. Underly ing mucosal retention cyst is possible. 2. Persistent mild mucosal thickening of the ethmoid sinuses and obscuration of the right frontal rec ess with similar degree of right frontal mucosal thickening. 3. Very mild left inferior nasal terminate mucosal hypertrophy.
== END | disposition home or self-care (01) ==
LOC: RADCTMAIN 15:32 → EEVIPCON 16:00
PROVIDERS: ATTEND Otolaryngology Sleep Medicine
DX: J32.0 Chronic maxillary sinusitis (principal); J34.3 Hypertrophy of nasal turbinates; J34.89 Other specified disorders of nose and nasal sinuses
CPT/HCPCS: 70486

== ENCOUNTER → 2019-02-16 | Outpatient (CLI) | payer MEDICARE, OTHER ==
[2019-02-16 13:16] LABS: ALT 17 U/L (21-72); AST 24 U/L (17-59); African American GFR (CKD) >90 (>60 ml/min/1.73 sqM); Albumin 4.3 g/dL (3.5-5.0); Alkaline Phosphatase 70 U/L (38-126); Anion Gap 11 mmol/L; Blood Urea Nitrogen 17 mg/dL (9-20); Calcium 9.4 mg/dL (8.4-10.2); Carbon Dioxide 26 mmol/L (22-30); Chloride 106 mmol/L (98-107); Glucose 110 mg/dL (74-99); Potassium 4.3 mmol/L (3.5-5.1); Sodium 143 mmol/L (137-145); Total Bilirubin 0.5 mg/dL (0.2-1.3); Total Protein 7.4 g/dL (6.3-8.2)
--- NOTE | 2019-02-16 14:07 | CT ---
EXAMINATION TYPE: CT brain wo/w con DATE OF EXAM: 02/16/2019 COMPARISON: 10/23/2017 HISTORY: History of seizures CT DLP: 2035.8 mGycm Automated exposure control for dose reduction was used. CONTRAST: CT scan of the head is performed without and with IV Contrast, patient injected with 100 mL of Isovue 300. FINDINGS: There is no abnormal enhancing mass or midline shift identified. Scattered areas of low-attenuation t hroughout the periventricular and subcortical white matter likely on the basis of chronic microvascul ar ischemic changes. Mild prominence of the sulci and ventricles likely on the basis of age-related d egenerative changes. Diffuse moderate to severe cerebellar atrophy, similar to prior. Skull base is i ntact. No extra-axial fluid collection. Basal cisterns are preserved. Redemonstration of near complet e opacification of the right maxillary sinus and partial opacification of the ethmoid air cells. Mast oid air cells are clear. IMPRESSION: No evidence of abnormal enhancing mass. Redemonstration of age-related chronic senescent changes of the brain. Cerebellar atrophy which may be related to age-related degeneration or from chronic seizure medicatio n. Megacisterna magna also included in the differential. Right maxillary and ethmoid sinus disease.
== END | disposition home or self-care (01) ==
LOC: RADCTMAIN 12:21
PROVIDERS: ATTEND Psychiatry & Neurology Neurology
DX: G31.9 Degenerative disease of nervous system, unspecified (principal); R41.81 Age-related cognitive decline; G40.909 Epilepsy, unspecified, not intractable, without status epilepticus
CPT/HCPCS: 80053; 70470; 36415; Q9967

== ENCOUNTER → 2021-05-29 | Outpatient (CLI) | payer MEDICARE, OTHER ==
--- NOTE | 2021-05-30 09:02 | XR ---
Right hip HISTORY: Right hip pain 2 views of the right hip, comparison CT scan 12/15/2016 There is no dislocation. Alignment is maintained. Question some mild concentric joint space loss. Bon e mineralization may be slightly reduced, question some cortical regularity involving the inferior pu bic ramus. 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 Questionable cortical regularity involving the inferi or pubic ramus on the right may represent some hypertrophic change but is indeterminate, correlate fo r point tenderness and history of trauma, follow-up as indicated.
== END | disposition home or self-care (01) ==
LOC: RADXRMAIN 16:42
PROVIDERS: ATTEND Family Medicine
DX: M25.551 Pain in right hip (principal)
CPT/HCPCS: 73502

== ENCOUNTER → 2024-06-17 | Outpatient (CLI) | payer MEDICARE, OTHER ==
--- NOTE | 2024-06-17 13:59 | MR ---
EXAMINATION TYPE: MR brain wo con DATE OF EXAM: 06/17/2024 10:44 AM COMPARISON: 02/16/2019. CLINICAL INDICATION: Male, 74 years old with history of R26.89 ABN GAIT M54.9 DORSALGIA; PHH, Unstead y gait. TECHNIQUE: Multi planar, multi sequence imaging was performed through the brain including: T1, T2, In version recovery, Diffusion weighted imaging, and gradient echo imaging. No gadolinium was given. FINDINGS: Mild cerebral atrophy with proportional dilation of ventricular system. Scattered foci of high T2 s ignal intensity are seen within the periventricular white matter. Midline structures show no abnormal ity. Diffusion-weighted imaging shows no evidence of restricted diffusion. The susceptibility weighte d images do not reveal any evidence for micro-hemorrhage. The bone marrow signal is within normal limits. Paranasal sinuses and mastoid air cells: Mild scattered paranasal sinus disease. Visualized orbits: Orbital contents are intact. IMPRESSION: 1. No evidence of intracranial mass or acute/subacute infarct. 2. Nonspecific white matter changes, likely secondary to small vessel ischemic disease. [facility], , 06/17/2024 1:57 PM
== END | disposition home or self-care (01) ==
LOC: RADMRIMAIN 09:45
PROVIDERS: ATTEND Psychiatry & Neurology Neurology
DX: R90.82 White matter disease, unspecified (principal); R26.89 Other abnormalities of gait and mobility
CPT/HCPCS: 70551